=== PATIENT | female | born 1995 | race African-American/Black ===

== ENCOUNTER 2018-01-16 14:41 | Emergency (ER) | payer OTHER | END 2018-01-16 15:54 | disposition home or self-care (01) | LOC: ERS 14:41 | DX: O99.512 Diseases of the respiratory system complicating pregnancy, second trimester (principal); J06.9 Acute upper respiratory infection, unspecified; J31.0 Chronic rhinitis; Z3A.26 26 weeks gestation of pregnancy | CPT/HCPCS: 87804; 99283 ==